=== PATIENT | female | born 1940 | race Caucasian/White ===

== ENCOUNTER → 2021-01-08 09:00 | Outpatient (BNVA) | payer MEDICARE, OTHER, SELFPAY | PROVIDERS: Family Provider Family Medicine; PCP Family Medicine; Visit Provider Nurse Practitioner Family | DX: T14.8XXA Other injury of unspecified body region, initial encounter (principal); W57.XXXA Bitten or stung by nonvenomous insect and other nonvenomous arthropods, initial encounter | CPT/HCPCS: 86000; 86618; 86666; 86757 ==

== ENCOUNTER → 2021-09-09 08:48 | Outpatient (BNVA) | payer MEDICARE, OTHER, SELFPAY | PROVIDERS: Family Provider Family Medicine; PCP Family Medicine; Visit Provider Nurse Practitioner Family | DX: R53.83 Other fatigue (principal); W57.XXXA Bitten or stung by nonvenomous insect and other nonvenomous arthropods, initial encounter; Z13.6 Encounter for screening for cardiovascular disorders | CPT/HCPCS: 80053; 80061; 84443; 85025; 86000; 86618; 86666; 86757 ==

== ENCOUNTER 2025-08-13 11:22 | Outpatient (RCR) | payer MEDICARE, SELFPAY | END 2025-09-04 23:59 | disposition home or self-care (01) | LOC: GPT 11:22 | PROVIDERS: Family Provider Family Medicine; PCP Family Medicine | DX: M76.72 Peroneal tendinitis, left leg (principal) | CPT/HCPCS: 97161 ==